=== PATIENT | male | born 1950 ===

== ENCOUNTER 2024-10-25 15:34 | Emergency (ER) | payer OTHER, SELFPAY ==
[2024-10-25] VITALS (52 sets, daily range): BP systolic 77–136; BP diastolic 51–105; PULSE 59–87; RESP 15–29; TEMP 37; O2SAT 93–99; BMI 26.1
--- NOTE | 2024-10-25 16:29 | DI.RAD.S_ITS ---
PROCEDURE: XR SHOULDER LT MIN 2V INDICATIONS: shoulder pain TECHNIQUE: 3 views of the shoulder were acquired. COMPARISON: None. FINDINGS: Bones: No acute fractures or dislocations. No suspicious bony lesions. Visualized ribs appear intact. Moderate degenerative changes at the glenohumeral and acromioclavicular joint. Soft tissues: No suspicious soft tissue calcifications. IMPRESSION: No acute osseous abnormality. If there is continued clinical concern or persistent symptoms, repeat radiographs or cross-sectional imaging (e.g. CT, MRI) may be helpful for further evaluation. Approved by: Tico Juaerz M.D. on 10/25/2024 at 16:54
--- NOTE | 2024-10-25 16:29 | DI.RAD.S_ITS ---
PROCEDURE: XR FEMUR LT MIN 2V INDICATIONS: left thigh pain, prior surgery TECHNIQUE: 2 views of the femur were acquired. COMPARISON: None. FINDINGS: Bones: Postsurgical changes from left proximal femoral fixation. Metal hardware is intact. Fracture appears healed with mild residual deformity of the greater trochanter. Mild left hip osteoarthrosis. Degenerative changes are seen in the included spine. Soft tissues: Prominent arterial vascular calcifications. IMPRESSION: Postsurgical changes from left proximal femoral fracture fixation. No acute osseous abnormality or acute hardware complication is seen. Approved by: Tico Juarez M.D. on 10/25/2024 at 16:46
--- NOTE | 2024-10-25 16:34 | ED.BACK ---
HPI - Back Pain/Injury <Alexandru Gilbert MD - Last Filed: 10/26/24 21:21> General Chief Complaint: Back Pain/Injury Stated Complaint: l Leg Pain Time Seen by Provider: 10/25/24 16:05 History of Present Illness HPI Narrative: 74-year-old male with history of prior left femur nic surgery, also prior bilateral shoulder surgeries, was leaning on his cane using his right hand, when he was stretching down to reach for something and felt a pulling sensation and pain to his left thigh, and also had pain to his left shoulder. No fall or blunt injury. No other injuries recalled. Related Data Home Medications Medication Instructions Recorded Confirmed apixaban 5 mg tablet 5 mg PO BID 10/25/24 10/25/24 atorvastatin 40 mg tablet 40 mg PO BEDTIME 10/25/24 10/25/24 cholecalciferol (vitamin D3) 25 25 mcg PO BID 10/25/24 10/25/24 mcg (1,000 unit) tablet (Vitamin D3) furosemide 40 mg tablet 40 mg PO DAILY 10/25/24 10/25/24 isosorbide mononitrate 30 mg 30 mg PO DAILY 10/25/24 10/25/24 tablet,extended release 24 hr metoprolol succinate 50 mg 75 mg PO BID 10/25/24 10/25/24 tablet,extended release 24 hr pantoprazole 40 mg tablet,delayed 40 mg PO BID 10/25/24 10/25/24 release sacubitril 49 mg-valsartan 51 mg 1 tab PO BID 10/25/24 10/25/24 tablet Allergies Allergy/AdvReac Type Severity Reaction Status Date / Time ONION Allergy Mild SICK Uncoded 09/11/17 12:14 Patient History <Alexandru Gilbert MD - Last Filed: 10/26/24 21:21> Social History Smoking Status: Former smoker Smoking Status: Former smoker Exam <Alexandru Gilbert MD - Last Filed: 10/26/24 21:21> Narrative Exam Narrative: GENERAL: Well-developed patient, in mild distress. HEAD: Atraumatic. Normocephalic. EYES: Pupils equal round and reactive. Extraocular motions intact. No scleral icterus. No injection or drainage. ENT: Nose without bleeding, purulent drainage. Throat without erythema, tonsillar hypertrophy or exudate. Airway patent. NECK: Trachea midline. Non tender CARDIOVASCULAR: Regular rate and rhythm without murmurs, gallops, or rubs. RESPIRATORY: Clear to auscultation. Breath sounds equal bilaterally. No wheezes, rales, or rhonchi. GASTROINTESTINAL: Abdomen soft, non-tender, nondistended. EXTREMITIES: Well-healed left thigh and hip scar, no gross deformities, some tenderness over mid dorsal lateral thigh without skin changes or redness or swelling. Full extension. Some tenderness over anterior left shoulder, well-healed scar. No gross deformity, no anterior fullness, can flex and extend. BACK: Nontender without deformity or crepitance. No flank tenderness. NEURO: AOx3. Motor functions grossly nonfocal SKIN: No rash or erythema of visible areas Initial Vital Signs Initial Vital Signs: Vital Signs Temperature 98.6 F 10/25/24 15:50 Pulse Rate 87 10/25/24 15:50 Respiratory Rate 20 10/25/24 15:50 Blood Pressure 123/70 10/25/24 15:50 Pulse Oximetry 94 10/25/24 15:50 Oxygen Delivery Method Room Air 10/25/24 15:50 <Ezio Randall DO - Last Filed: 10/26/24 00:28> Initial Vital Signs Initial Vital Signs: Vital Signs Temperature 98.6 F 10/25/24 15:50 Pulse Rate 87 10/25/24 15:50 Respiratory Rate 20 10/25/24 15:50 Blood Pressure 123/70 10/25/24 15:50 Pulse Oximetry 94 10/25/24 15:50 Oxygen Delivery Method Room Air 10/25/24 15:50 Scores <Alexandru Gilbert MD - Last Filed: 10/26/24 21:21> HEART Score Heart Score Total: 6 <Ezio Randlal DO - Last Filed: 10/26/24 00:28> HEART Score Heart Score history: Slightly Suspicious Heart Score EKG: Non-Specific repolarization disturbance Heart Score Age: > or = 65 years old Heart Score risk factors: > 3 risk factors or hx of atherosclerotic disease Heart Score troponin: 1-3 times normal limit Heart Score Total: 6 Course <Alexandru Gilbert MD - Last Filed: 10/26/24 21:21> Orders Ordered: Discontinued Medications Sodium Chloride (Normal Saline 0.9%) 1,000 mls @ 1,000 mls/hr IV BOLUS ONE Stop: 10/25/24 17:53 Last Infusion: 10/25/24 18:51 Dose: Infused Documented By: Infusion: 10/25/24 17:28 Dose: 1,000 mls/hr Documented By: Infusion: 10/25/24 17:03 Dose: 0 mls/hr Documented By: Admin: 10/25/24 17:03 Dose: 1,000 mls/hr Documented By: SILKE Sodium Chloride (Normal Saline 0.9%) 1,000 mls @ 1,000 mls/hr IV BOLUS ONE Stop: 10/25/24 20:38 Last Infusion: 10/25/24 21:10 Dose: Infused Documented By: Admin: 10/25/24 19:43 Dose: 1,000 mls/hr Documented By: SILKE Sodium Chloride (Normal Saline 0.9%) 1,000 mls @ 1,000 mls/hr IV BOLUS ONE Stop: 10/25/24 22:46 Last Infusion: 10/25/24 23:45 Dose: Infused Documented By: Admin: 10/25/24 21:58 Dose: 1,000 mls/hr Documented By: SILKE Vital Signs Vital signs: Vital Signs - 8 hr 10/25/24 15:50 10/25/24 16:20 10/25/24 16:21 Temperature 98.6 F Pulse Rate 87 76 76 Respiratory Rate 20 Blood Pressure 123/70 Pulse Oximetry 94 96 96 Oxygen Delivery Method Room Air 10/25/24 16:21 10/25/24 16:30 10/25/24 16:30 Temperature Pulse Rate 79 Respiratory Rate Blood Pressure 98/56 L 77/53 L Pulse Oximetry 94 Oxygen Delivery Method 10/25/24 16:38 10/25/24 16:38 10/25/24 16:44 Temperature Pulse Rate 73 Respiratory Rate Blood Pressure 88/56 L 84/54 L Pulse Oximetry 95 Oxygen Delivery Method 10/25/24 16:44 10/25/24 16:47 10/25/24 16:47 Temperature Pulse Rate 71 65 Respiratory Rate 18 Blood Pressure 87/53 L Pulse Oximetry 96 97 Oxygen Delivery Method 10/25/24 16:48 10/25/24 16:48 10/25/24 16:51 Temperature Pulse Rate 68 Respiratory Rate 19 Blood Pressure 115/55 L 118/63 Pulse Oximetry 96 Oxygen Delivery Method 10/25/24 16:53 10/25/24 16:54 10/25/24 16:54 Temperature Pulse Rate 72 70 Respiratory Rate 20 Blood Pressure 106/57 L Pulse Oximetry 95 97 Oxygen Delivery Method Room Air 10/25/24 16:57 10/25/24 16:57 10/25/24 17:00 Temperature Pulse Rate 71 Respiratory Rate 29 H Blood Pressure 117/64 121/59 L Pulse Oximetry 97 Oxygen Delivery Method 10/25/24 17:00 10/25/24 17:03 10/25/24 17:03 Temperature Pulse Rate 69 70 Respiratory Rate Blood Pressure 121/60 Pulse Oximetry 96 96 Oxygen Delivery Method 10/25/24 17:06 10/25/24 17:06 10/25/24 17:09 Temperature Pulse Rate 69 Respiratory Rate Blood Pressure 125/65 125/62 Pulse Oximetry 97 Oxygen Delivery Method 10/25/24 17:09 10/25/24 17:54 10/25/24 17:54 Temperature Pulse Rate 69 70 Respiratory Rate Blood Pressure 136/105 H Pulse Oximetry 97 97 Oxygen Delivery Method 10/25/24 17:58 10/25/24 17:58 10/25/24 18:00 Temperature Pulse Rate 63 71 Respiratory Rate Blood Pressure 90/61 Pulse Oximetry 99 96 Oxygen Delivery Method 10/25/24 18:01 10/25/24 18:01 10/25/24 18:04 Temperature Pulse Rate 64 Respiratory Rate Blood Pressure 86/53 L 82/53 L Pulse Oximetry 97 Oxygen Delivery Method 10/25/24 18:04 10/25/24 18:07 10/25/24 18:07 Temperature Pulse Rate 60 61 Respiratory Rate Blood Pressure 82/55 L Pulse Oximetry 99 97 Oxygen Delivery Method 10/25/24 18:10 10/25/24 18:10 10/25/24 18:15 Temperature Pulse Rate 60 Respiratory Rate Blood Pressure 80/54 L 87/57 L Pulse Oximetry 99 Oxygen Delivery Method 10/25/24 18:15 10/25/24 18:20 10/25/24 18:20 Temperature Pulse Rate 65 66 Respiratory Rate Blood Pressure 96/59 L Pulse Oximetry 94 97 Oxygen Delivery Method 10/25/24 18:25 10/25/24 18:25 10/25/24 18:30 Temperature Pulse Rate 66 62 Respiratory Rate Blood Pressure 91/58 L Pulse Oximetry 97 95 Oxygen Delivery Method 10/25/24 18:30 10/25/24 18:33 10/25/24 18:33 Temperature Pulse Rate 66 Respiratory Rate Blood Pressure 90/63 90/53 L Pulse Oximetry 99 Oxygen Delivery Method 10/25/24 18:45 10/25/24 18:45 10/25/24 18:48 Temperature Pulse Rate 63 Respiratory Rate 19 Blood Pressure 88/55 L 95/57 L Pulse Oximetry 97 Oxygen Delivery Method 10/25/24 18:48 10/25/24 19:00 10/25/24 19:00 Temperature Pulse Rate 62 65 Respiratory Rate 21 18 Blood Pressure 93/53 L Pulse Oximetry 99 97 Oxygen Delivery Method Room Air 10/25/24 19:15 10/25/24 19:15 10/25/24 19:18 Temperature Pulse Rate 61 Respiratory Rate 17 Blood Pressure 89/54 L 87/53 L Pulse Oximetry 94 Oxygen Delivery Method 10/25/24 19:18 10/25/24 19:30 10/25/24 19:30 Temperature Pulse Rate 66 68 Respiratory Rate 20 22 Blood Pressure 83/61 L Pulse Oximetry 94 96 Oxygen Delivery Method Room Air 10/25/24 19:51 10/25/24 19:51 10/25/24 20:00 Temperature Pulse Rate 60 Respiratory Rate 23 Blood Pressure 103/57 L 96/52 L Pulse Oximetry 96 Oxygen Delivery Method 10/25/24 20:00 10/25/24 20:15 10/25/24 20:15 Temperature Pulse Rate 60 60 Respiratory Rate 19 18 Blood Pressure 100/58 L Pulse Oximetry 96 95 Oxygen Delivery Method 10/25/24 20:30 10/25/24 20:30 10/25/24 20:45 Temperature Pulse Rate 61 Respiratory Rate 17 Blood Pressure 105/60 101/57 L Pulse Oximetry 96 Oxygen Delivery Method 10/25/24 20:45 10/25/24 21:00 10/25/24 21:00 Temperature Pulse Rate 63 69 Respiratory Rate 15 15 Blood Pressure 100/66 Pulse Oximetry 95 94 Oxygen Delivery Method Room Air 10/25/24 21:15 10/25/24 21:15 10/25/24 21:30 Temperature Pulse Rate 60 Respiratory Rate 16 Blood Pressure 105/55 L 96/57 L Pulse Oximetry 96 Oxygen Delivery Method 10/25/24 21:30 10/25/24 21:45 10/25/24 21:45 Temperature Pulse Rate 67 60 Respiratory Rate 16 16 Blood Pressure 93/52 L Pulse Oximetry 97 94 Oxygen Delivery Method 10/25/24 22:00 10/25/24 22:00 10/25/24 22:15 Temperature Pulse Rate 66 Respiratory Rate 23 Blood Pressure 100/70 105/59 L Pulse Oximetry 96 Oxygen Delivery Method 10/25/24 22:15 10/25/24 22:30 10/25/24 22:30 Temperature Pulse Rate 66 59 L Respiratory Rate 21 24 Blood Pressure 94/51 L Pulse Oximetry 98 97 Oxygen Delivery Method Room Air 10/25/24 22:45 10/25/24 22:45 10/25/24 23:00 Temperature Pulse Rate 60 60 Respiratory Rate 19 Blood Pressure 108/59 L Pulse Oximetry 97 98 Oxygen Delivery Method Room Air 10/25/24 23:00 Temperature Pulse Rate Respiratory Rate Blood Pressure 99/57 L Pulse Oximetry Oxygen Delivery Method <Ezio Randall, DO - Last Filed: 10/26/24 00:28> Orders Ordered: Discontinued Medications Sodium Chloride (Normal Saline 0.9%) 1,000 mls @ 1,000 mls/hr IV BOLUS ONE Stop: 10/25/24 17:53 Last Infusion: 10/25/24 18:51 Dose: Infused Documented By: Infusion: 10/25/24 17:28 Dose: 1,000 mls/hr Documented By: Infusion: 10/25/24 17:03 Dose: 0 mls/hr Documented By: Admin: 10/25/24 17:03 Dose: 1,000 mls/hr Documented By: SB Sodium Chloride (Normal Saline 0.9%) 1,000 mls @ 1,000 mls/hr IV BOLUS ONE Stop: 10/25/24 20:38 Last Infusion: 10/25/24 21:10 Dose: Infused Documented By: Admin: 10/25/24 19:43 Dose: 1,000 mls/hr Documented By: SB Sodium Chloride (Normal Saline 0.9%) 1,000 mls @ 1,000 mls/hr IV BOLUS ONE Stop: 10/25/24 22:46 Last Infusion: 10/25/24 23:45 Dose: Infused Documented By: Admin: 10/25/24 21:58 Dose: 1,000 mls/hr Documented By: SB Vital Signs Vital signs: Vital Signs - 8 hr 10/25/24 15:50 10/25/24 16:20 10/25/24 16:21 Temperature 98.6 F Pulse Rate 87 76 76 Respiratory Rate 20 Blood Pressure 123/70 Pulse Oximetry 94 96 96 Oxygen Delivery Method Room Air 10/25/24 16:21 10/25/24 16:30 10/25/24 16:30 Temperature Pulse Rate 79 Respiratory Rate Blood Pressure 98/56 L 77/53 L Pulse Oximetry 94 Oxygen Delivery Method 10/25/24 16:38 10/25/24 16:38 10/25/24 16:44 Temperature Pulse Rate 73 Respiratory Rate Blood Pressure 88/56 L 84/54 L Pulse Oximetry 95 Oxygen Delivery Method 10/25/24 16:44 10/25/24 16:47 10/25/24 16:47 Temperature Pulse Rate 71 65 Respiratory Rate 18 Blood Pressure 87/53 L Pulse Oximetry 96 97 Oxygen Delivery Method 10/25/24 16:48 10/25/24 16:48 10/25/24 16:51 Temperature Pulse Rate 68 Respiratory Rate 19 Blood Pressure 115/55 L 118/63 Pulse Oximetry 96 Oxygen Delivery Method 10/25/24 16:53 10/25/24 16:54 10/25/24 16:54 Temperature Pulse Rate 72 70 Respiratory Rate 20 Blood Pressure 106/57 L Pulse Oximetry 95 97 Oxygen Delivery Method Room Air 10/25/24 16:57 10/25/24 16:57 10/25/24 17:00 Temperature Pulse Rate 71 Respiratory Rate 29 H Blood Pressure 117/64 121/59 L Pulse Oximetry 97 Oxygen Delivery Method 10/25/24 17:00 10/25/24 17:03 10/25/24 17:03 Temperature Pulse Rate 69 70 Respiratory Rate Blood Pressure 121/60 Pulse Oximetry 96 96 Oxygen Delivery Method 10/25/24 17:06 10/25/24 17:06 10/25/24 17:09 Temperature Pulse Rate 69 Respiratory Rate Blood Pressure 125/65 125/62 Pulse Oximetry 97 Oxygen Delivery Method 10/25/24 17:09 10/25/24 17:54 10/25/24 17:54 Temperature Pulse Rate 69 70 Respiratory Rate Blood Pressure 136/105 H Pulse Oximetry 97 97 Oxygen Delivery Method 10/25/24 17:58 10/25/24 17:58 10/25/24 18:00 Temperature Pulse Rate 63 71 Respiratory Rate Blood Pressure 90/61 Pulse Oximetry 99 96 Oxygen Delivery Method 10/25/24 18:01 10/25/24 18:01 10/25/24 18:04 Temperature Pulse Rate 64 Respiratory Rate Blood Pressure 86/53 L 82/53 L Pulse Oximetry 97 Oxygen Delivery Method 10/25/24 18:04 10/25/24 18:07 10/25/24 18:07 Temperature Pulse Rate 60 61 Respiratory Rate Blood Pressure 82/55 L Pulse Oximetry 99 97 Oxygen Delivery Method 10/25/24 18:10 10/25/24 18:10 10/25/24 18:15 Temperature Pulse Rate 60 Respiratory Rate Blood Pressure 80/54 L 87/57 L Pulse Oximetry 99 Oxygen Delivery Method 10/25/24 18:15 10/25/24 18:20 10/25/24 18:20 Temperature Pulse Rate 65 66 Respiratory Rate Blood Pressure 96/59 L Pulse Oximetry 94 97 Oxygen Delivery Method 10/25/24 18:25 10/25/24 18:25 10/25/24 18:30 Temperature Pulse Rate 66 62 Respiratory Rate Blood Pressure 91/58 L Pulse Oximetry 97 95 Oxygen Delivery Method 10/25/24 18:30 10/25/24 18:33 10/25/24 18:33 Temperature Pulse Rate 66 Respiratory Rate Blood Pressure 90/63 90/53 L Pulse Oximetry 99 Oxygen Delivery Method 10/25/24 18:45 10/25/24 18:45 10/25/24 18:48 Temperature Pulse Rate 63 Respiratory Rate 19 Blood Pressure 88/55 L 95/57 L Pulse Oximetry 97 Oxygen Delivery Method 10/25/24 18:48 10/25/24 19:00 10/25/24 19:00 Temperature Pulse Rate 62 65 Respiratory Rate 21 18 Blood Pressure 93/53 L Pulse Oximetry 99 97 Oxygen Delivery Method Room Air 10/25/24 19:15 10/25/24 19:15 10/25/24 19:18 Temperature Pulse Rate 61 Respiratory Rate 17 Blood Pressure 89/54 L 87/53 L Pulse Oximetry 94 Oxygen Delivery Method 10/25/24 19:18 10/25/24 19:30 10/25/24 19:30 Temperature Pulse Rate 66 68 Respiratory Rate 20 22 Blood Pressure 83/61 L Pulse Oximetry 94 96 Oxygen Delivery Method Room Air 10/25/24 19:51 05/25/25 19:51 10/25/24 20:00 Temperature Pulse Rate 60 Respiratory Rate 23 Blood Pressure 103/57 L 96/52 L Pulse Oximetry 96 Oxygen Delivery Method 10/25/24 20:00 10/25/24 20:15 10/25/24 20:15 Temperature Pulse Rate 60 60 Respiratory Rate 19 18 Blood Pressure 100/58 L Pulse Oximetry 96 95 Oxygen Delivery Method 10/25/24 20:30 10/25/24 20:30 10/25/24 20:45 Temperature Pulse Rate 61 Respiratory Rate 17 Blood Pressure 105/60 101/57 L Pulse Oximetry 96 Oxygen Delivery Method 10/25/24 20:45 10/25/24 21:00 10/25/24 21:00 Temperature Pulse Rate 63 69 Respiratory Rate 15 15 Blood Pressure 100/66 Pulse Oximetry 95 94 Oxygen Delivery Method Room Air 10/25/24 21:15 10/25/24 21:15 10/25/24 21:30 Temperature Pulse Rate 60 Respiratory Rate 16 Blood Pressure 105/55 L 96/57 L Pulse Oximetry 96 Oxygen Delivery Method 10/25/24 21:30 10/25/24 21:45 10/25/24 21:45 Temperature Pulse Rate 67 60 Respiratory Rate 16 16 Blood Pressure 93/52 L Pulse Oximetry 97 94 Oxygen Delivery Method 10/25/24 22:00 10/25/24 22:00 10/25/24 22:15 Temperature Pulse Rate 66 Respiratory Rate 23 Blood Pressure 100/70 105/59 L Pulse Oximetry 96 Oxygen Delivery Method 10/25/24 22:15 10/25/24 22:30 10/25/24 22:30 Temperature Pulse Rate 66 59 L Respiratory Rate 21 24 Blood Pressure 94/51 L Pulse Oximetry 98 97 Oxygen Delivery Method Room Air 10/25/24 22:45 10/25/24 22:45 10/25/24 23:00 Temperature Pulse Rate 60 60 Respiratory Rate 19 Blood Pressure 108/59 L Pulse Oximetry 97 98 Oxygen Delivery Method Room Air 10/25/24 23:00 Temperature Pulse Rate Respiratory Rate Blood Pressure 99/57 L Pulse Oximetry Oxygen Delivery Method MDM - Back Pain/Injury <Alexandru Gilbert MD - Last Filed: 10/26/24 21:21> Lab Data 10/25/24 17:17 10/25/24 17:17 Labs: Lab Results 10/25/24 10/25/24 10/25/24 Range/Units 17:17 17:30 19:24 WBC 11.3 H (4.5-11.0) X10^3/uL RBC 4.34 L (4.5-5.9) X10^6/uL Hgb 13.1 L (13.5-17.5) g/dL Hct 39.3 L (41-53) % MCV 90.4 (80-100) fL MCH 30.2 (26-34) PG MCHC 33.4 (30-36) % RDW 14.2 (11.6-14.8) % Plt Count 222 (150-400) X10^3/uL Neut % (Auto) 69.2 (50-75) % Lymph % (Auto) 23.1 L (25-40) % [place] % (Auto) 6.2 (3-14) % Eos % (Auto) 0.6 L (2-4) % Baso % (Auto) 0.9 (0-2) % Neut # (Auto) 7900 H (1184-0892) /uL Lymph # (Auto) 2600 (3666-5344) /uL [place] # (Auto) 700 (0-900) /uL Eos # (Auto) 100 (0-450) /uL Baso # (Auto) 100 (0-100) /uL Sodium 139 (137-145) mmol/L Potassium 4.0 (3.4-5.1) mmol/L Chloride 102 (98-107) mmol/L Carbon Dioxide 32 (22-32) mmol/L BUN 10 (9-20) mg/dL Creatinine 0.87 (0.66-1.25) mg/dL Estimated GFR > 60 (>60) mL/min BUN/Creatinine Ratio 11.5 (6-22) Glucose 98 (70-99) mg/dL Lactate (0.7-2.1) mmol/L Calcium 9.0 (8.4-10.2) mg/dL Total Bilirubin 0.8 (0.2-1.3) mg/dL AST 22 (17-59) IU/L ALT 11 (<50) IU/L Alkaline Phosphatase 95 (38-126) U/L Total Creatine Kinase 58 (55-170) U/L Troponin I 0.030 0.032 (0.01-0.034) ng/mL Total Protein 6.9 (6.3-8.2) g/dL Albumin 4.1 (3.5-5.0) g/dL Globulin 2.8 (1.7-4.1) g/dL Albumin/Globulin Ratio 1.5 (1.0-2.8) Lipase 36 (23-300) U/L U Opiates 300ng/mL cut Negative (Negative) Ur Oxycodone Screen Negative (Negative) Urine Methadone Screen Negative (Negative) Ur Barbiturates Screen Negative (Negative) U Tricyclic Antidepress Negative (Negative) Ur Phencyclidine Scrn Negative (Negative) Ur Amphetamines Screen Negative (Negative) U Methamphetamines Scrn Negative (Negative) Ur MDMA Scrn (Ecstasy) Negative (Negative) U Benzodiazepines Scrn Negative (Negative) Urine Cocaine Screen Negative (Negative) U Marijuana (THC) Screen Positive H (Negative) Urine pH Normal (Normal) Urine Specific [place] Normal (Normal) Ethyl Alcohol < 10 (<10) mg/dL Ur Creatinine Normal (Normal) 05/25/25 Range/Units 21:55 WBC (4.5-11.0) X10^3/uL RBC (4.5-5.9) X10^6/uL Hgb (13.5-17.5) g/dL Hct (41-53) % MCV (80-100) fL MCH (26-34) PG MCHC (30-36) % RDW (11.6-14.8) % Plt Count (150-400) X10^3/uL Neut % (Auto) (50-75) % Lymph % (Auto) (25-40) % [place] % (Auto) (3-14) % Eos % (Auto) (2-4) % Baso % (Auto) (0-2) % Neut # (Auto) (2890-8140) /uL Lymph # (Auto) (6196-1638) /uL [place] # (Auto) (0-900) /uL Eos # (Auto) (0-450) /uL Baso # (Auto) (0-100) /uL Sodium (137-145) mmol/L Potassium (3.4-5.1) mmol/L Chloride (98-107) mmol/L Carbon Dioxide (22-32) mmol/L BUN (9-20) mg/dL Creatinine (0.66-1.25) mg/dL Estimated GFR (>60) mL/min BUN/Creatinine Ratio (6-22) Glucose (70-99) mg/dL Lactate 0.7 (0.7-2.1) mmol/L Calcium (8.4-10.2) mg/dL Total Bilirubin (0.2-1.3) mg/dL AST (17-59) IU/L ALT (<50) IU/L Alkaline Phosphatase (38-126) U/L Total Creatine Kinase (55-170) U/L Troponin I 0.038 H (0.01-0.034) ng/mL Total Protein (6.3-8.2) g/dL Albumin (3.5-5.0) g/dL Globulin (1.7-4.1) g/dL Albumin/Globulin Ratio (1.0-2.8) Lipase (23-300) U/L U Opiates 300ng/mL cut (Negative) Ur Oxycodone Screen (Negative) Urine Methadone Screen (Negative) Ur Barbiturates Screen (Negative) U Tricyclic Antidepress (Negative) Ur Phencyclidine Scrn (Negative) Ur Amphetamines Screen (Negative) U Methamphetamines Scrn (Negative) Ur MDMA Scrn (Ecstasy) (Negative) U Benzodiazepines Scrn (Negative) Urine Cocaine Screen (Negative) U Marijuana (THC) Screen (Negative) Urine pH (Normal) Urine Specific [place] (Normal) Ethyl Alcohol (<10) mg/dL Ur Creatinine (Normal) Imaging Data Extremity x-ray #1: Radiologist's Impression: [address] [address] XRay Report Signed Patient: John Caban MR#: [id number] : 1950 Acct:[id number] Age/Sex: 74 / M Date of Service: 10/25/24 Loc: ED Accession Number: [id number] Procedure: XR femur LT min 2V Ordering Provider: Alexandru Gilbert MD PROCEDURE: XR FEMUR LT MIN 2V INDICATIONS: left thigh pain, prior surgery TECHNIQUE: 2 views of the femur were acquired. COMPARISON: None. FINDINGS: Bones: Postsurgical changes from left proximal femoral fixation. Metal hardware is intact. Fracture appears healed with mild residual deformity of the greater trochanter. Mild left hip osteoarthrosis. Degenerative changes are seen in the included spine. Soft tissues: Prominent arterial vascular calcifications. IMPRESSION: Postsurgical changes from left proximal femoral fracture fixation. No acute osseous abnormality or acute hardware complication is seen. Approved by: Tico Juarez M.D. on 10/25/2024 at 16:46 Extremity x-ray #2: Radiologist's Impression: Close Chest X-Ray (Signed) Tico Juarez - 10/25/24 Femur X-Ray (Signed) Tico Juarez - 10/25/24 Shoulder X-Ray (Signed) Tico Juarez - 10/25/24 Launch?Image [address] [address] XRay Report Signed Patient: John Caban MR#: [id number] : 1950 Acct:[id number] Age/Sex: 74 / M Date of Service: 10/25/24 Loc: ED Accession Number: [id number] Procedure: XR shoulder LT 2+ views Ordering Provider: Alexandru Gilbert MD PROCEDURE: XR SHOULDER LT MIN 2V INDICATIONS: shoulder pain TECHNIQUE: 3 views of the shoulder were acquired. COMPARISON: None. FINDINGS: Bones: No acute fractures or dislocations. No suspicious bony lesions. Visualized ribs appear intact. Moderate degenerative changes at the glenohumeral and acromioclavicular joint. Soft tissues: No suspicious soft tissue calcifications. IMPRESSION: No acute osseous abnormality. If there is continued clinical concern or persistent symptoms, repeat radiographs or cross-sectional imaging (e.g. CT, MRI) may be helpful for further evaluation. Approved by: Tico Juarez M.D. on 10/25/2024 at 16:54 Chest x-ray: Radiologist's Impression: [address] [address] XRay Report Signed Patient: John Caban MR#: [id number] : 1950 Acct:[id number] Age/Sex: 74 / M Date of Service: 10/25/24 Loc: ED Accession Number: [id number] Procedure: XR chest 1V Ordering Provider: Alexandru Gilbert MD PROCEDURE: XR CHEST 1V INDICATIONS: chest pain TECHNIQUE: One view of the chest was acquired. COMPARISON: [facility], CR, XR CHEST 2 VIEWS, 10/25/2021, 7:03. FINDINGS: Surgical changes and devices: Cardiac pacemaker is seen with pulse generator in the right chest. Sternotomy wires are present. Lungs and pleura: Lungs are clear. No pleural effusions or pneumothorax. Mediastinum: Mediastinal contours appear normal. Heart size is normal. Bones and chest wall: No suspicious bony lesions. Overlying soft tissues appear unremarkable. IMPRESSION: No acute cardiopulmonary abnormality is seen. Approved by: Tico Juarez M.D. on 10/25/2024 at 16:52 ECG Data Attestation: I personally reviewed and interpreted this ECG as follows: Interpretation: 1653, normal sinus rhythm with rate of 73 with first-degree AV block, no obvious ST segment elevation or depression changes. Left bundle branch block pattern noted. MO 250, QRS 138, QTC 480. MDM Narrative Medical decision making narrative: 74-year-old male with previous left femur and left shoulder surgery, leaning forward felt pain to his left anterolateral thigh and left anterior shoulder. No blunt force trauma. Patient prefers imaging when we discuss options. Left shoulder x-ray series, left femur x-ray series. 1700, patient had drop in blood pressure, no chest pain or shortness of breath, admitted to nursing that he had had a gummy earlier today. Blood pressure 77/55, no tachycardia. Not having any current chest pain or shortness of breath or diaphoresis. No focal weakness or numbness. No black or red stools. No abdominal discomfort. Unclear if this represents vasovagal episode from his musculoskeletal initial complaints, or some other cause. We will send chest pain workup studies, chest x-ray, EKG, labs including troponin. IV fluid bolus. Keep NPO. Extremity x-rays are also still pending. Left femur x-ray series with postoperative changes, no obvious fracture or osteomyelitis changes. See radiology report. Left shoulder x-ray series without acute changes, no dislocation or fracture. See radiology report. Chest x-ray without acute changes. See radiology report. Initial troponin negative. Interval troponin we will be drawn in couple hours. Transient low blood pressure seems to be improved now after IV fluids or spontaneously improving, possible vagal reaction versus other. 1814, interval repeat troponin ordered for 1920h, signed out to Dr. Randall <Ezio Randall, DO - Last Filed: 10/26/24 00:28> Lab Data Labs: Lab Results 10/25/24 10/25/24 10/25/24 Range/Units 17:17 17:30 19:24 WBC 11.3 H (4.5-11.0) X10^3/uL RBC 4.34 L (4.5-5.9) X10^6/uL Hgb 13.1 L (13.5-17.5) g/dL Hct 39.3 L (41-53) % MCV 90.4 (80-100) fL MCH 30.2 (26-34) PG MCHC 33.4 (30-36) % RDW 14.2 (11.6-14.8) % Plt Count 222 (150-400) X10^3/uL Neut % (Auto) 69.2 (50-75) % Lymph % (Auto) 23.1 L (25-40) % [place] % (Auto) 6.2 (3-14) % Eos % (Auto) 0.6 L (2-4) % Baso % (Auto) 0.9 (0-2) % Neut # (Auto) 7900 H (1955-3387) /uL Lymph # (Auto) 2600 (3265-1100) /uL [place] # (Auto) 700 (0-900) /uL Eos # (Auto) 100 (0-450) /uL Baso # (Auto) 100 (0-100) /uL Sodium 139 (137-145) mmol/L Potassium 4.0 (3.4-5.1) mmol/L Chloride 102 (98-107) mmol/L Carbon Dioxide 32 (22-32) mmol/L BUN 10 (9-20) mg/dL Creatinine 0.87 (0.66-1.25) mg/dL Estimated GFR > 60 (>60) mL/min BUN/Creatinine Ratio 11.5 (6-22) Glucose 98 (70-99) mg/dL Lactate (0.7-2.1) mmol/L Calcium 9.0 (8.4-10.2) mg/dL Total Bilirubin 0.8 (0.2-1.3) mg/dL AST 22 (17-59) IU/L ALT 11 (<50) IU/L Alkaline Phosphatase 95 (38-126) U/L Total Creatine Kinase 58 (55-170) U/L Troponin I 0.030 0.032 (0.01-0.034) ng/mL Total Protein 6.9 (6.3-8.2) g/dL Albumin 4.1 (3.5-5.0) g/dL Globulin 2.8 (1.7-4.1) g/dL Albumin/Globulin Ratio 1.5 (1.0-2.8) Lipase 36 (23-300) U/L U Opiates 300ng/mL cut Negative (Negative) Ur Oxycodone Screen Negative (Negative) Urine Methadone Screen Negative (Negative) Ur Barbiturates Screen Negative (Negative) U Tricyclic Antidepress Negative (Negative) Ur Phencyclidine Scrn Negative (Negative) Ur Amphetamines Screen Negative (Negative) U Methamphetamines Scrn Negative (Negative) Ur MDMA Scrn (Ecstasy) Negative (Negative) U Benzodiazepines Scrn Negative (Negative) Urine Cocaine Screen Negative (Negative) U Marijuana (THC) Screen Positive H (Negative) Urine pH Normal (Normal) Urine Specific [place] Normal (Normal) Ethyl Alcohol < 10 (<10) mg/dL Ur Creatinine Normal (Normal) 05/25/25 Range/Units 21:55 WBC (4.5-11.0) X10^3/uL RBC (4.5-5.9) X10^6/uL Hgb (13.5-17.5) g/dL Hct (41-53) % MCV (80-100) fL MCH (26-34) PG MCHC (30-36) % RDW (11.6-14.8) % Plt Count (150-400) X10^3/uL Neut % (Auto) (50-75) % Lymph % (Auto) (25-40) % [place] % (Auto) (3-14) % Eos % (Auto) (2-4) % Baso % (Auto) (0-2) % Neut # (Auto) (1874-9961) /uL Lymph # (Auto) (8461-4329) /uL [place] # (Auto) (0-900) /uL Eos # (Auto) (0-450) /uL Baso # (Auto) (0-100) /uL Sodium (137-145) mmol/L Potassium (3.4-5.1) mmol/L Chloride (98-107) mmol/L Carbon Dioxide (22-32) mmol/L BUN (9-20) mg/dL Creatinine (0.66-1.25) mg/dL Estimated GFR (>60) mL/min BUN/Creatinine Ratio (6-22) Glucose (70-99) mg/dL Lactate 0.7 (0.7-2.1) mmol/L Calcium (8.4-10.2) mg/dL Total Bilirubin (0.2-1.3) mg/dL AST (17-59) IU/L ALT (<50) IU/L Alkaline Phosphatase (38-126) U/L Total Creatine Kinase (55-170) U/L Troponin I 0.038 H (0.01-0.034) ng/mL Total Protein (6.3-8.2) g/dL Albumin (3.5-5.0) g/dL Globulin (1.7-4.1) g/dL Albumin/Globulin Ratio (1.0-2.8) Lipase (23-300) U/L U Opiates 300ng/mL cut (Negative) Ur Oxycodone Screen (Negative) Urine Methadone Screen (Negative) Ur Barbiturates Screen (Negative) U Tricyclic Antidepress (Negative) Ur Phencyclidine Scrn (Negative) Ur Amphetamines Screen (Negative) U Methamphetamines Scrn (Negative) Ur MDMA Scrn (Ecstasy) (Negative) U Benzodiazepines Scrn (Negative) Urine Cocaine Screen (Negative) U Marijuana (THC) Screen (Negative) Urine pH (Normal) Urine Specific [place] (Normal) Ethyl Alcohol (<10) mg/dL Ur Creatinine (Normal) [facility] Narrative Medical decision making narrative: 74-year-old male with previous left femur and left shoulder surgery, leaning forward felt pain to his left anterolateral thigh and left anterior shoulder. No blunt force trauma. Patient prefers imaging when we discuss options. Left shoulder x-ray series, left femur x-ray series. 1700, patient had drop in blood pressure, no chest pain or shortness of breath, admitted to nursing that he had had a gummy earlier today. Blood pressure 77/55, no tachycardia. Not having any current chest pain or shortness of breath or diaphoresis. No focal weakness or numbness. No black or red stools. No abdominal discomfort. Unclear if this represents vasovagal episode from his musculoskeletal initial complaints, or some other cause. We will send chest pain workup studies, chest x-ray, EKG, labs including troponin. IV fluid bolus. Keep NPO. Extremity x-rays are also still pending. Left femur x-ray series with postoperative changes, no obvious fracture or osteomyelitis changes. See radiology report. Left shoulder x-ray series without acute changes, no dislocation or fracture. See radiology report. Chest x-ray without acute changes. See radiology report. Initial troponin negative. Interval troponin we will be drawn in couple hours. Transient low blood pressure seems to be improved now after IV fluids or spontaneously improving, possible vagal reaction versus other. 1814, interval repeat troponin ordered for 1919h, signed out to Dr. Randall Patient signed out to me at shift change pending final disposition 2nd set troponin 0.032 and then 3rd set 0.038. Pt remains asymptomatic at this time with no chest pain dizziness lightheadedness shortness breath dyspnea on exertion. Patient received a total of 3 L of normal saline bolus and continues to remain asymptomatic with no acute complaints. Heart score 7. Case was discussed with Dr. Holden diversity intern on-call who had no concerns no anticoagulation at this time no admission for observation and to follow up with his diversity intern at the next scheduled appointment unless symptomatic. Discharge Plan Departure Patient Disposition: Home Clinical Impression: Left thigh pain, Vaso vagal episode Left shoulder pain Qualifiers: Chronicity: acute Qualified Code(s): M25.512 - Pain in left shoulder Instructions: DI for Muscle Strain Activity Restrictions/Additional Instructions: Return with new or worsening symptoms. Follow up with PCP in 1 week for re-evaluation and to keep hydrated. Prescriptions: No Action cholecalciferol (vitamin D3) [Vitamin D3] 25 mcg (1,000 unit) Tablet 25 mcg PO BID isosorbide mononitrate 30 mg Tablet Extended Release 24 Hr 30 mg PO DAILY furosemide 40 mg Tablet 40 mg PO DAILY atorvastatin 40 mg Tablet 40 mg PO BEDTIME metoprolol succinate 50 mg Tablet Extended Release 24 Hr 75 mg PO BID pantoprazole 40 mg Tablet,Delayed Release (Dr/Ec) 40 mg PO BID apixaban 5 mg Tablet 5 mg PO BID sacubitril-valsartan 49-51 mg Tablet 1 tab PO BID Stand Alone Forms: Patient Portal/API/Survey
--- NOTE | 2024-10-25 16:53 | EKG_ITS ---
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
--- NOTE | 2024-10-25 16:54 | DI.RAD.S_ITS ---
PROCEDURE: XR CHEST 1V INDICATIONS: chest pain TECHNIQUE: One view of the chest was acquired. COMPARISON: [facility], CR, XR CHEST 2 VIEWS, 10/25/2021, 7:03. FINDINGS: Surgical changes and devices: Cardiac pacemaker is seen with pulse generator in the right chest. Sternotomy wires are present. Lungs and pleura: Lungs are clear. No pleural effusions or pneumothorax. Mediastinum: Mediastinal contours appear normal. Heart size is normal. Bones and chest wall: No suspicious bony lesions. Overlying soft tissues appear unremarkable. IMPRESSION: No acute cardiopulmonary abnormality is seen. Approved by: Tico Juarez M.D. on 10/25/2024 at 16:52
--- NOTE | 2024-10-25 16:56 | PC.NURSE ---
Pt blood pressure drops to 88/54. He is repositioned and vitals rechecked. Denies dizziness and lightheadedness. He denies chest pain but does report back pain. He is A&Ox4. Pt has significant cardiac hx. Provider Vladimir made aware.
[2024-10-25] MEDS: SODIUM CHLORIDE 0.9% 1,000 ML 1000 ML IV ×3 (17:03→21:58)
[2024-10-25 17:27] LABS: Add Manual Diff / Slide Review NO; Basophils Absolute Auto 100 /uL (0-100); Basophils Percent Auto 0.9 % (0-2); Eosinophils Absolute Auto 100 /uL (0-450); Eosinophils Percent Auto 0.6 % (2-4); Hematocrit 39.3 % (41-53); Hemoglobin 13.1 g/dL (13.5-17.5); Lymphocytes Absolute Auto 2600 /uL (1100-4500); Lymphocytes Percent Auto 23.1 % (25-40); Mean Corpuscular HGB Conc 33.4 % (30-36); Mean Corpuscular Hemoglobin 30.2 PG (26-34); Mean Corpuscular Volume 90.4 fL (80-100); Monocytes Absolute Auto 700 /uL (0-900); Monocytes Percent Auto 6.2 % (3-14); Neutrophils Absolute Auto 7900 /uL (1500-7000); Neutrophils Percent Auto 69.2 % (50-75); Platelet Count 222 X10^3/uL (150-400); Red Blood Cell Count 4.34 X10^6/uL (4.5-5.9); Red Cell Distribution Width 14.2 % (11.6-14.8); White Blood Cell Count 11.3 X10^3/uL (4.5-11.0)
[2024-10-25 17:35] LABS: Alanine Aminotransferase 11 IU/L (<50); Albumin 4.1 g/dL (3.5-5.0); Albumin Globulin Ratio 1.5 (1.0-2.8); Alkaline Phosphatase 95 U/L (38-126); Aspartate Aminotransferase 22 IU/L (17-59); BUN Creatinine Ratio 11.5 (6-22); Bilirubin Total 0.8 mg/dL (0.2-1.3); Blood Urea Nitrogen 10 mg/dL (9-20); Carbon Dioxide 32 mmol/L (22-32); Chloride 102 mmol/L (98-107); Creatine Kinase 58 U/L (55-170); Estimated Glomerular Filt Rate > 60 mL/min (>60); Globulin 2.8 g/dL (1.7-4.1); Glucose 98 mg/dL (70-99); Lipase 36 U/L (23-300); Sodium 139 mmol/L (137-145); Total Protein 6.9 g/dL (6.3-8.2)
[2024-10-25 17:36] LABS: HEMOLYSIS < 15 (0-50)
[2024-10-25 17:41] LABS: Ethanol (ETOH) < 10 mg/dL (<10)
[2024-10-25 17:43] LABS: Ur Creatinine Normal (Normal); Ur Specific Gravity Normal (Normal); Urine pH Normal (Normal)
[2024-10-25 17:44] LABS: Urine Amphetamines Negative (Negative); Urine Barbiturates Negative (Negative); Urine Benzodiazepines Negative (Negative); Urine Cocaine Negative (Negative); Urine MDMA Negative (Negative); Urine Methadone Negative (Negative); Urine Opiates Negative (Negative); Urine Oxycodone Negative (Negative); Urine Phencyclidine Negative (Negative); Urine THC Positive (Negative); Urine Tricyclic Antidepressant Negative (Negative)
[2024-10-25 19:57] LABS: Troponin I 0.032 ng/mL (0.01-0.034)
[2024-10-25 22:26] LABS: Lactate (Lactic Acid) 0.7 mmol/L (0.7-2.1)
[2024-10-25 22:38] LABS: Troponin I 0.038 ng/mL (0.01-0.034)
[2024-10-26] VITALS: BP 109/57; PULSE 65; RESP 18; O2SAT 97
--- NOTE | 2024-10-26 00:08 | EKG_ITS ---
[address] [address] Test Date: 2024-10-26 Pat Name: John Caban Department: Room: Gender: Male [place] Man: RICHARD : 1950 Requested By: Order Number: [id number] Reading MD: Alec Stevens Measurements Intervals [place] Rate: 62 P: 52 MT: 304 QRS: -29 QRSD: 140 T: 148 QT: 470 QTc: 477 Interpretive Statements Atrial-paced rhythm with prolonged AV conduction with premature supraventricular complexes Left bundle branch block Electronically Signed On 10-26-2024 15:30:54 PDT by Alec Stevens
[2024-10-26 00:15] VITALS: BP 99/58; PULSE 71; O2SAT 96
[2024-10-26 00:30] VITALS: PULSE 65; O2SAT 95
[2024-10-26 00:31] VITALS: BP 92/52; PULSE 60; PULSE 75; RESP 20; TEMP 36.6; O2SAT 95; O2SAT 96
== END 2024-10-26 00:55 | disposition home or self-care (01) ==
PROVIDERS: Emergency Medicine; Emergency Provider Family Medicine
DX: M25.512 Pain in left shoulder (principal); R55 Syncope and collapse; R07.9 Chest pain, unspecified; M79.652 Pain in left thigh
CPT/HCPCS: 36415; 71045; 73030; 73552; 80053; 80305; 80320; 82550; 83605; 83690; 84484; 85025; 87040; 93005; 96360; 96361; 99284